=== PATIENT | male | born 1945 | race Caucasian/White ===

== ENCOUNTER → 2024-12-01 | Outpatient (CLI) | payer MEDICARE, SELFPAY ==
--- NOTE | 2024-12-01 08:44 | NM_ITS ---
PROCEDURE: GASTRIC EMPTYING STUDY - 4 HR 12/01/2024 REASON FOR EXAM: GERD Known hiatal hernia. History of fundoplication. COMPARISON: None. TECHNIQUE: The patient ingested a standard meal of cooked egg whites mixed with 2 slices bread bread, 2 pads of butter, and 6 oz water. There was no vomiting postprandially. Anterior and posterior planar images of the upper abdomen were obtained for 1 minute immediately following the meal at 1h, 2h and 4h if more than 10% of the activity persisted within the stomach. Regions of interest were drawn, and a geometric mean was used to calculate a [id number]. Medications taken in the past 24 hours that may affect gastric emptying: None RADIOPHARMACEUTICAL: 1.1 mCi technetium 99 M sulfur colloid, orally with the solid meal. FINDINGS: On images obtained, an hiatal hernia is likely visualized. By linear fit, gastric emptying half time is calculated at 113.2 minutes. Raw data fit gastric emptying half-time of 94.3 minutes. Percent activity remaining in stomach: 1 hour 71 % (normal 37-90%) 2 hours: 38 % (normal 30-60%) 4 hours: 2 % (normal 0-10%) NM/Gastric Emptying Study - 4 HR IMPRESSION: Normal solid phase gastric emptying half-time. Reading Location: [place] [id number]
== END | disposition home or self-care (01) ==
PROVIDERS: PCP Internal Medicine
DX: K44.9 Diaphragmatic hernia without obstruction or gangrene (principal); K21.9 Gastro-esophageal reflux disease without esophagitis; Z98.890 Other specified postprocedural states
CPT/HCPCS: 78264; A9541